=== PATIENT | female | born 1965 | race Caucasian/White ===

== ENCOUNTER → 2021-03-14 | Outpatient (CLI) | payer MEDICARE ==
[2021-03-14 15:50] LABS: RED BLOOD COUNT 4.25 M/UL (4.00-5.10); WHITE BLOOD COUNT 7.3 K/UL (4.5-11.0)
[2021-03-14 16:22] LABS: BUN/CREATININE RATIO 12 (0-10)
[2021-03-15 11:14] LABS: COMPLEMENT C3, SERUM 133 mg/dL (82-167); COMPLEMENT C4, SERUM 25 mg/dL (12-38); HBSAG SCREEN Negative (Negative); HCV AB <0.1 (0.0-0.9); HEP B CORE AB, TOT Negative (Negative)
[2021-03-16 10:14] LABS: DSDNA CRITHIDIA LUCILIAE IFA Negative (Negative)
[2021-03-20 06:07] LABS: QUANTIFERON MITOGEN VALUE >10.00 IU/mL (.); QUANTIFERON-TB GOLD PLUS Negative (Negative)
== END ==
LOC: LAB 13:13
PROVIDERS: Internal Medicine
DX: M32.9 Systemic lupus erythematosus, unspecified (principal); Z92.89 Personal history of other medical treatment; M25.50 Pain in unspecified joint; Z11.59 Encounter for screening for other viral diseases; Z79.899 Other long term (current) drug therapy
CPT/HCPCS: 36415; 80053; 81001; 82570; 84156; 85025; 86160; 86162; 86255; 86704; 86803; 87340